=== PATIENT | male | born 1995 | race Caucasian/White ===

== ENCOUNTER 2018-10-01 16:06 | Emergency (ER) | payer OTHER ==
[~2018-10-01] VITALS: Ht 172.7 cm; Wt 81.8 kg
[2018-10-01 16:12] VITALS: BP 147/85
== END 2018-10-01 17:57 | disposition left against medical advice (07) ==
LOC: EMS 16:09
DX: R06.00 Dyspnea, unspecified (principal); Z53.21 Procedure and treatment not carried out due to patient leaving prior to being seen by health care provider